=== PATIENT | male | born 1970 | race Caucasian/White ===

== ENCOUNTER 2018-03-08 20:59 | Emergency (ER) | payer MEDICAID ==
[~2018-03-08] VITALS: Ht 180.3 cm; Wt 88.0 kg
[2018-03-08 21:14] VITALS: BP 149/96
== END 2018-03-09 00:01 | disposition home or self-care (01) ==
LOC: ER 21:01
DX: R51 Headache (principal); F10.129 Alcohol abuse with intoxication, unspecified; F17.200 Nicotine dependence, unspecified, uncomplicated; Y90.9 Presence of alcohol in blood, level not specified
CPT/HCPCS: 99283